=== PATIENT | male | born 1980 | race African-American/Black ===

== ENCOUNTER 2023-07-10 15:58 | Outpatient (CLI) | payer BC, SELFPAY ==
[2023-07-11 00:11] LABS: Chlamydia DNA Amplified* NOT DETECTED (No Detected); GC DNA Amplified* NOT DETECTED (No Detected)
== END 2023-07-10 15:59 | disposition home or self-care (01) ==
PROVIDERS: Visit Provider Family Medicine
DX: Z11.3 Encounter for screening for infections with a predominantly sexual mode of transmission (principal)
CPT/HCPCS: 80053; 80061; 86592; 86703; 86705; 86803; 87341; 87491; 87591